=== PATIENT | female | born 1940 | race Caucasian/White ===

== ENCOUNTER 2016-07-25 09:12 | Day surgery (SDC) | payer MEDICARE, OTHER ==
[2016-07-23 11:44] LABS: BASOPHILS 0.3 %; BASOPHILS ABSOLUTE 0.02 10/3/uL (0.0-0.16); EOSINOPHILS 4.8 %; EOSINOPHILS ABSOLUTE 0.31 10/3/uL (0.0-0.53); HEMATOCRIT 31.3 % (36.0-48.0); HEMOGLOBIN 10.3 g/dL (12.0-16.0); IMMATURE GRANULOCYTES 0.2 %; IMMATURE GRANULOCYTES ABSOLUTE 0.01 10/3/uL (0.0-0.11); LYMPHOCYTES 38.6 %; LYMPHOCYTES ABSOLUTE 2.49 10/3/uL (0.67-4.30); MEAN CORPUS HGB CONC 32.9 g/dL (32.0-36.0); MEAN CORPUSCULAR HEMOGLOB 27.2 pg (26.0-34.0); MEAN PLATELET VOLUME 10.2 fL (9.2-13.0); MONOCYTES 6.8 %; MONOCYTES ABSOLUTE 0.44 10/3/uL (0.21-1.20); NEUTROPHILS 49.3 %; NEUTROPHILS ABSOLUTE 3.18 10/3/uL (2.02-8.40); PLATELET COUNT 276 10/3/uL (150-400); RBC DISTRIBUTION WIDTH 15.4 % (12.0-16.0); RED CELL COUNT 3.79 10/6/uL (4.0-5.6)
[2016-07-23 11:46] LABS: ASCORBIC ACID (UR NOT ORDER) NEG (NEG); BILIRUBIN, URINE NEGATIVE (NEG); KETONE, URINE NEGATIVE (NEG); WBC (NOT ORDERED) (RFLEX) 1 (0-5)
[2016-07-23 11:49] LABS: MANUAL DIFF NO %; MEAN CORPUSCULAR VOLUME 82.6 fL (80-100); WHITE BLOOD CELLS 6.5 10/3/uL (4.5-10.5)
[2016-07-23 11:55] LABS: LEUKOCYTE ESTERASE(NOT OR TRACE (NEG)
[2016-07-23 11:58] LABS: ALKALINE PHOSPHATASE 117 U/L (45-117); CALCIUM, SERUM 9.2 MG/DL (8.5-10.4); CHLORIDE, SERUM 104 MMOL/L (96-112); CO2 (CARBON DIOXIDE) 28 MMOL/L (24-34); CREATININE 1.21 MG/DL (0.55-1.02); GFR AFRICAN AMERICAN 50 ML/MIN (>=60); GFR NON AFRICAN AMERICAN 43 ML/MIN (>=60); GLUCOSE, SERUM 133 MG/DL (60-99); POTASSIUM, SERUM 4.4 MMOL/L (3.5-5.3); SGOT(AST) 14 U/L (5-40); SGPT(ALT) 12 U/L (5-65); SODIUM, SERUM 143 MMOL/L (135-148)
[2016-07-23 11:59] LABS: A/G RATIO 0.9 (0.7-1.9); ALBUMIN 3.5 G/DL (3.5-5.0); BUN (BLOOD UREA NITROGEN) 29 MG/DL (6-23); TOTAL BILIRUBIN 0.5 MG/DL (0-1.2); TOTAL PROTEIN 7.5 G/DL (6.0-8.5)
--- NOTE | ~2016-07-25 | OP ---
Record Of Operation [facility] [address] [place]. [address] NAME: JESSIKA BECK : 36 STATUS : [facility]#: [id number] AGE: 76 ADM/REG DATE : 07/25/16 MR#: [id number] REPORT SERV DATE: 07/26/16 DICTATED BY: DONTE BERMUDEZ DATE: 07/26/16 REPORT STATUS : Draft TRANSCRIBED BY: MODL DATE: 07/26/16 DATE OF PROCEDURE: 07/25/2016 PREOPERATIVE DIAGNOSES: Gallstones, diabetes mellitus, recent episode of severe illness with abdominal pain, elevated liver and pancreatic function. POSTOPERATIVE DIAGNOSES: Gallstones, diabetes mellitus, recent episode of severe illness with abdominal pain, elevated liver and pancreatic function with a normal intraoperative cholangiogram. PROCEDURE: Laparoscopic cholecystectomy with intraoperative cholangiogram. SURGEON: Donte Bermudez M.D. ANESTHESIA: General endotracheal. ESTIMATED BLOOD LOSS: Nil. FLUIDS: Crystalloid. SPECIMEN: Gallbladder. DRAINS: None. COMPLICATIONS: None. CONDITION: Good. INDICATIONS: Please see preop indications. PROCEDURE IN DETAIL: After being properly identified in the preop holding, she was brought to the operating room, positioned supine, general endotracheal anesthesia was induced, and a time-out was performed. She received Ancef intravenously. After sterile prep and drape, time-out, 0.5% Marcaine was infiltrated infraumbilical. A vertical skin incision was made. The skin was grasped with towel clips, elevated, and a Veress needle was inserted into the peritoneal cavity as confirmed by saline drop test. A 15 mm carbon dioxide pneumoperitoneum was created. The Veress needle was removed, and a 5 mm trocar was inserted. A 30-degree laparoscope was inserted within the peritoneal cavity. There was no visceral injury. Intraabdominal content was inspected. There was some adherence of greater omentum to the inferior abdominal midline from prior hysterectomy. No bowel adherent. Ms. Beck was positioned head up, foot down, rolled right side up. After Marcaine infiltration and appropriate skin incisions, a 10 mm trocar was inserted subxiphoid, two 5 mm were inserted subcostally on the right in the midclavicular and anterior axillary line. The gallbladder was grasped and elevated. There was some filmy adherence to the infrahepatic fat to the gallbladder. It was taken down with the scissor and Ginna dissector. Peritoneal folds at the neck of the gallbladder were identified, dissected open, and cystic duct egressing the Record Of Operation [place] [address] [place]. [address] NAME: JESSIKA BECK : 36 STATUS : [facility] PAT#: [id number] AGE: 76 ADM/REG DATE : 07/25/16 MR#: [id number] REPORT SERV DATE: 07/26/16 DICTATED BY: DONTE BERMUDEZ DATE: 07/26/16 REPORT STATUS : Draft TRANSCRIBED BY: MODL DATE: 07/26/16 gallbladder was readily evident. The cystic duct was dissected circumferential, it was milked towards the gallbladder and an occlusive clip was placed across the neck. Next, I made a cystic ductotomy and inserted and anchored a cholangiogram catheter. Fluoroscopy was now brought on the field and the cholangiogram revealed a narrow spiraling cystic duct that coursed into a nondilated common duct, flow distal into the duodenum. There was also contrast refluxing into the proper hepatic duct and the left and right hepatic duct. With no evidence of common duct stone and free flow of contrast into the duodenum evident, fluoro was taken off the field and laparoscopic instrumentation was reinserted. Gallbladder was freed and retracted. The cholangiogram catheter was removed, and the cystic duct was clipped occlusively x3 on the common bile duct side of the point of cannulation and the cystic duct was divided at the point of cannulation. We dissected in Calot's triangle and I dissected and clipped the lymphatic tissue between the lymph node and the gallbladder, single clips each on side and then divided. This exposed the cystic artery, which was dissected circumferential, clipped x3, and divided between the middle clip and the clip on the gallbladder side. I next used hook cautery to dissect the gallbladder out of the gallbladder fossa and so doing, we exposed another branch of cystic artery that coursed right lateral and entered the neck of the gallbladder somewhat further up towards the liver edge. This was again dissected circumferential, clipped x3, divided between the middle clip and the clip on the gallbladder side. Finally, I used hook cautery to dissect the gallbladder out of the gallbladder fossa. This went smoothly without getting into the liver or the gallbladder. The gallbladder was placed in EndoCatch and was extracted out the subxiphoid trocar path after slight extension of the skin and fascial opening. I now inserted the trocar and carefully inspected the operative field, and there was a point of oozing blood in the gallbladder fossa that was controlled with cautery. I carefully suctioned all of sub and suprahepatic fluid and thoroughly inspected. There was no bleeding. No bile leak and a good clip positioning. At this point, Ms. Beck was brought supine and the upper abdominal trocars were removed with visualization through the laparoscope, there was no bleeding. Abdomen was desufflated. The infraumbilical laparoscope and trocar were removed. The fascia was closed with a [id number] suture at subxiphoid with 0 Vicryl. Dermis was closed in all incisions with 4-0 Monocryl, followed by Benzoin, Steri-Strips, and sterile dressing. Ms. Beck tolerated the surgery well. She was recovered from anesthetic, extubated, and transported to the recovery room in good condition. YESENIA/ELIZABETH Donte Bermudez M.D. / [id number] CC: Donte Bermudez M.D. Record Of Operation [address] [address] NAME: JESSIKA BECK : 36 STATUS : [facility]#: [id number] AGE: 76 ADM/REG DATE : 07/25/16 MR#: [id number] REPORT SERV DATE: 07/26/16 DICTATED BY: DONTE BERMUDEZ DATE: 07/26/16 REPORT STATUS : Draft TRANSCRIBED BY: ELIZABETH DATE: 07/26/16 Kyrie Osorio M.D.
[~2016-07-25 09:12] MED LIST: AMARYL1 MG PO; APRES50 PO; CATAPRES2 TOP; COZAAR100 MG PO; DEPAKOT500 PO; IMDUR30 PO; LIPITOR40 PO; LOP25 PO; SENTAB PO; T PO; VERELAN240 MG PO
== END 2016-07-25 17:16 | disposition home or self-care (01) ==
LOC: SDC 09:12
PROVIDERS: Surgery
PROC: BF12YZZ Fluoroscopy of Gallbladder using Other Contrast (ICD-10-PCS; 2016-07-25)
PROC: 0FT44ZZ Resection of Gallbladder, Percutaneous Endoscopic Approach (ICD-10-PCS; principal; 2016-07-25 10:45)
DX: K80.10 Calculus of gallbladder with chronic cholecystitis without obstruction (principal); I10 Essential (primary) hypertension; E11.9 Type 2 diabetes mellitus without complications; Z86.73 Personal history of transient ischemic attack (TIA), and cerebral infarction without residual deficits; Z88.8 Allergy status to other drugs, medicaments and biological substances; Z88.5 Allergy status to narcotic agent
CPT/HCPCS: 74300; 76000; 80053; 81001; 82150; 82962; 83690; 85025; 88304; 93005; J0690; J2405; J2710; J3010; Q9967